=== PATIENT | female | born 1970 | race Caucasian/White ===

== ENCOUNTER → 2017-01-22 | Outpatient (CLI) | payer OTHER ==
[~2017-01-22] MED LIST: Z.0.NO CURRENT MEDS
--- NOTE | 2017-01-22 15:12 | RADRPT ---
EXAM DATE/TIME: 01/22/2017 13:52 [facility] COMPARISON: No previous studies available for comparison. INDICATIONS : Neck pain, no injury. MEDICAL HISTORY : None. SURGICAL HISTORY : None. ENCOUNTER: Initial ACUITY: >1 year PAIN SCORE: 8/10 LOCATION: Bilateral neck FINDINGS: 5 views of the cervical spine demonstrate cervical kyphosis . No fracture or dislocation is identifie d. There is 3 mm of anterolisthesis of C2 on C3 and 2 mm of anterolisthesis of C3 on C4. There is sev ere decreased disc height at C4-C5 and C5-C6 with endplate osteophytes and there is mild decreased di sc height at C6-C7. There is no prevertebral soft tissue swelling. The atlantoaxial relationship is w ithin normal limits. Oblique views demonstrate multiple areas of facet arthrosis bilaterally. On the right there is potential neural foraminal narrowing at C4-C5 and C5-C6 secondary to uncovertebral ost eophyte. Visualized upper lung zones are clear. CONCLUSION: There is cervical kyphosis with minimal anterolisthesis of C2 on C3 and C3 on C4. There is degenerati ve disc disease at C4-C5 through C6-C7. Right neural foraminal narrowing is present at C4-C5 and C5-C 6 secondary to uncovertebral osteophyte. John Campos MD on January 22, 2017 at 15:03 Board Certified Radiologist. This report was verified electronically.
--- NOTE | 2017-01-22 15:13 | RADRPT ---
EXAM DATE/TIME: 01/22/2017 14:02 [facility] COMPARISON: No previous studies available for comparison. INDICATIONS : Pelvic pain, no injury. MEDICAL HISTORY : None. SURGICAL HISTORY : None. ENCOUNTER: Initial ACUITY: >1 year PAIN SCORE: 8/10 LOCATION: Bilateral pelvis FINDINGS: Single AP view of the pelvis demonstrates no fracture or dislocation. Mineralization is within normal limits. There is no significant arthropathy. There is degenerative change of the pubic symphysis. No soft tissue abnormality or radiopaque foreign body is identified. CONCLUSION: No acute abnormality is identified. John Campos MD on January 22, 2017 at 15:11 Board Certified Radiologist. This report was verified electronically.
--- NOTE | 2017-01-22 15:16 | RADRPT ---
EXAM DATE/TIME: 01/22/2017 14:04 [facility] COMPARISON: No previous studies available for comparison. INDICATIONS : Lower back pain, no injury. MEDICAL HISTORY : None. SURGICAL HISTORY : None. ENCOUNTER: Initial ACUITY: 1 day PAIN SCORE: 9/10 LOCATION: Bilateral lower back FINDINGS: 5 views of the lumbar spine demonstrate 5 [id number] lumbar vertebral bodies. No fracture or com pression deformity is present. There is no anterolisthesis #3 sthesis MR pars defect. Mild decreased disc height is present at L3-L4 and L4-L5. There is facet hypertrophy at L4-L5 and L5-S1. Pelvic bones and soft tissues demonstrate no acute finding. There is also degenerative disc disease a t T11-T12. CONCLUSION: No acute lumbar spine abnormality is identified. There is degenerative disc disease and facet hypertr ophy in the inferior lumbar spine, as above. John Campos MD on January 22, 2017 at 15:12 Board Certified Radiologist. This report was verified electronically.
== END ==
LOC: HRAD 13:05
DX: M54.5 Low back pain (principal); M54.2 Cervicalgia
CPT/HCPCS: 72050; 72110; 72170

== ENCOUNTER → 2017-08-12 | Outpatient (CLI) | payer OTHER ==
--- NOTE | 2017-08-12 12:45 | RADRPT ---
EXAM DATE/TIME: 08/12/2017 11:57 [facility] COMPARISON: No previous studies available for comparison. INDICATIONS : Right side chest pain. No known injury. MEDICAL HISTORY : None. SURGICAL HISTORY : None. ENCOUNTER: Initial ACUITY: 2 weeks PAIN SCORE: 5/10 LOCATION: Bilateral chest FINDINGS: PA and lateral views of the chest demonstrate the lungs to be symmetrically aerated without evidence of mass, infiltrate or effusion. The cardiomediastinal contours are unremarkable. Osseous structure s are intact. CONCLUSION: No acute disease. John Tapia MD on August 12, 2017 at 12:41 Board Certified Radiologist. This report was verified electronically.
== END ==
LOC: HRAD 11:40
PROVIDERS: ATTEND Nurse Practitioner Family
DX: R07.89 Other chest pain (principal)
CPT/HCPCS: 71046